=== PATIENT | male | born 1960 | race Caucasian/White ===

== ENCOUNTER → 2017-02-04 | Outpatient (CLI) | payer OTHER ==
--- NOTE | 2017-02-04 15:39 | REP ---
Right lower extremity Duplex Doppler venous ultrasound: Real time compression and duplex Doppler interrogation of the right lower extremity deep venous system is performed. The right common femoral, superficial femoral and popliteal veins are fully compressible with transducer pressure and demonstrate normal spontaneous and phasic flow, without evidence of deep venous thrombosis. However there is diffuse thrombus within the right greater saphenous vein which extends to the saphenofemoral junction. Impression: No evidence of deep venous thrombosis of the right lower extremity femoral popliteal venous system. However there is diffuse thrombus within the right greater saphenous vein which extends to the saphenofemoral junction. Signed by Geraldo Frost MD 02/04/2017 03:31 P
== END ==
LOC: M LAB 14:37 → M RAD 14:37
PROVIDERS: ATTEND Nurse Practitioner Adult Health
DX: I82.402 Acute embolism and thrombosis of unspecified deep veins of left lower extremity (principal)

== ENCOUNTER → 2018-01-02 | Outpatient (CLI) | payer OTHER ==
[2018-01-02 16:56] LABS: BASO # 0.1 10^3/uL (0.0-0.2); BASO % 0.9 % (0.0-1.0); EOS # 0.2 10^3/uL (0.0-0.50); EOS % 2.8 % (0.0-3.0); HEMOGLOBIN 13.9 g/dl (13.5-17.5); IMMATURE GRANULOCYTE % 0.3 % (0-3.0); LYMPH # 2.2 10^3/uL (1.5-4.5); LYMPH % 31.7 % (24.0-44.0); MEAN CORPUSCULAR HGB CONC 31.6 g/dl (32.0-36.5); MEAN CORPUSCULAR VOLUME 94.8 fl (80.0-96.0); MONO # 0.5 10^3/uL (0.0-0.8); MONO % 7.5 % (0.0-5.0); NEUTROPHILS # 3.9 10^3/uL (1.8-7.7); NEUTROPHILS % 56.8 % (36.0-66.0); PLATELET COUNT, AUTOMATED 151 10^3/uL (150-450); RED BLOOD COUNT 4.64 10^6/uL (4.30-6.10); RED CELL DISTRIBUTION WIDTH 13.2 % (11.5-14.5); WHITE BLOOD COUNT 6.8 10^3/uL (4.0-10.0)
[2018-01-02 17:23] LABS: ALBUMIN 3.8 GM/DL (3.2-5.2); ALBUMIN/GLOBULIN RATIO 0.86 (1.00-1.93); ALKALINE PHOSPHATASE 74 U/L (45-117); ALT/SGPT 35 U/L (12-78); ANION GAP 11 MEQ/L (8-16); AST/SGOT 28 U/L (7-37); BILIRUBIN,TOTAL 0.4 MG/DL (0.2-1.0); BLOOD UREA NITROGEN 20 MG/DL (7-18); CALCIUM LEVEL 8.9 MG/DL (8.5-10.1); CARBON DIOXIDE LEVEL 25 MEQ/L (21-32); CHLORIDE LEVEL 107 MEQ/L (98-107); CREATININE FOR GFR 1.07 MG/DL (0.70-1.30); GLOMERULAR FILTRATION RATE > 60.0 (>56); GLUCOSE, FASTING 94 MG/DL (70-100); POTASSIUM SERUM 4.6 MEQ/L (3.5-5.1); SODIUM LEVEL 143 MEQ/L (136-145); TOTAL PROTEIN 8.2 GM/DL (6.4-8.2)
== END ==
LOC: M WUC 10:49
DX: M54.5 Low back pain (principal)
CPT/HCPCS: 80053

== ENCOUNTER → 2018-01-02 | Outpatient (REF) | payer OTHER | LOC: M LAB REF 13:06 | DX: M54.5 Low back pain (principal) ==

== ENCOUNTER 2019-06-18 17:16 | Observation (INO) | payer OTHER ==
[~2019-06-18] VITALS: Ht 177.8 cm; Wt 136.4 kg
[2019-06-18] MEDS ORDERED: LEVO137T2 PO (18:07)
[2019-06-18] MEDS ORDERED: XARE20TA PO (18:07)
[2019-06-18 18:24] LABS: BASO % 0.2 % (0.0-1.0); EOS # 0.1 10^3/uL (0.0-0.5); EOS % 0.5 % (0.0-3.0); HEMATOCRIT 43.5 % (42.0-52.0); HEMOGLOBIN 13.9 g/dl (13.5-17.5); LYMPH # 0.5 10^3/uL (1.5-5.0); MEAN CORPUSCULAR HEMOGLOBIN 29.9 pg (27.0-33.0); MEAN CORPUSCULAR VOLUME 93.5 fl (80.0-96.0); MONO # 0.3 10^3/uL (0.0-0.8); NEUTROPHILS # 8.4 10^3/uL (1.5-8.5); NEUTROPHILS % 91.1 % (36.0-66.0); PLATELET COUNT, AUTOMATED 150 10^3/uL (150-450); RED BLOOD COUNT 4.65 10^6/uL (4.30-6.10); WHITE BLOOD COUNT 9.2 10^3/uL (4.0-10.0)
[2019-06-18 18:28] LABS: INR 1.27; PROTHROMBIN TIME 15.6 SECONDS (11.8-14.0)
[2019-06-18 18:29] LABS: PARTIAL THROMBOPLASTIN TIME 25.3 SECONDS (25.0-38.4)
[2019-06-18 18:42] LABS: ALBUMIN 3.5 GM/DL (3.2-5.2); ALT/SGPT 31 U/L (12-78); BILIRUBIN,DIRECT < 0.1 MG/DL (0.0-0.2); BILIRUBIN,TOTAL 0.5 MG/DL (0.2-1.0); BLOOD UREA NITROGEN 18 MG/DL (7-18); CALCIUM LEVEL 8.7 MG/DL (8.5-10.1); CARBON DIOXIDE LEVEL 28 MEQ/L (21-32); CHLORIDE LEVEL 106 MEQ/L (98-107); CK-MB VALUE MASS 1.4 NG/ML (<3.6); CPK CREATINE PHOSPHOKINASE 123 U/L (39-308); CREATININE FOR GFR 1.24 MG/DL (0.70-1.30); FREE T4 0.81 NG/DL (0.76-1.46); GLOMERULAR FILTRATION RATE > 60.0 (>56); GLUCOSE, FASTING 106 MG/DL (70-100); LIPASE 95 U/L (73-393); MB/CK RELATIVE INDEX 1.14 (< OR =4); SODIUM LEVEL 139 MEQ/L (136-145); TOTAL PROTEIN 8.2 GM/DL (6.4-8.2); TROPONIN I < 0.02 NG/ML (< 0.10)
[2019-06-18] MEDS ORDERED: ISOVUE-370 76% 100ML VIAL (Q9967) As Ordered ONE (18:58)
[2019-06-18] MEDS ORDERED: NS 1,000 ML IV ONE (19:00)
[2019-06-18] MEDS ORDERED: ACETAMINOPHEN TAB 650MG DOSE (2X325MG) PO ONE (19:00)
--- NOTE | 2019-06-18 20:00 | REPVR ---
PROCEDURE INFORMATION: Exam: CT Abdomen And Pelvis With Contrast Exam date and time: 06/18/2019 7:12 PM Age: 59 years old Clinical indication: Abdominal pain; Epigastric; Additional info: Epigastric pain TECHNIQUE: Imaging protocol: Computed tomography of the abdomen and pelvis with intravenous contrast. Radiation optimization: All CT scans at this facility use at least one of these dose optimization techniques: automated exposure control; mA and/or kV adjustment per patient size (includes targeted exams where dose is matched to clinical indication); or iterative reconstruction. Contrast material: ISOVUE 370; Contrast volume: 100 ml; Contrast route: IV; COMPARISON: CT ABD PELVIS W/O CONTRAST 11/28/2014 9:11 PM FINDINGS: Liver: There is a diffuse decrease in hepatic parenchymal density, consistent with fatty infiltration. Gallbladder and bile ducts: Normal. No calcified stones. No ductal dilation. Pancreas: Normal. No ductal dilation. Spleen: Normal. No splenomegaly. Adrenals: Normal. No mass. Kidneys and ureters: Simple cyst upper pole right kidney measures 5.7 cm. Stomach and bowel: Multiple nodular densities demonstrated in the posterior aspect of the gastric fundus. Endoscopic or upper GI correlation recommended to exclude polypoid masses. Dilated small bowel loops demonstrated in the abdomen involving the jejunum and normalizing at the ileum without a clear transition point. Finding is consistent with a small bowel obstruction or ileus depending upon clinical evaluation. Appendix: No evidence of appendicitis. Intraperitoneal space: Unremarkable. No free air. No significant fluid collection. Vasculature: Unremarkable. No abdominal aortic aneurysm. Lymph nodes: Unremarkable. No enlarged lymph nodes. Bladder: Unremarkable as visualized. Reproductive: Unremarkable as visualized. Bones/joints: Moderate to severe central spinal stenosis L3-L4 and L4-L5. Soft tissues: Unremarkable. IMPRESSION: 1. There is a diffuse decrease in hepatic parenchymal density, consistent with fatty infiltration. 2. Multiple nodular densities demonstrated in the posterior aspect of the gastric fundus. Endoscopic or upper GI correlation recommended to exclude polypoid masses. 3. Dilated small bowel loops demonstrated in the abdomen involving the jejunum and normalizing at the ileum without a clear transition point. Finding is consistent with a small bowel obstruction or ileus depending upon clinical evaluation. Electronically signed by: John Fam On 06/18/2019 20:00:02 PM
--- NOTE | 2019-06-18 20:05 | REPVR ---
PROCEDURE INFORMATION: Exam: CT Angiography Chest With Contrast Exam date and time: 06/18/2019 7:12 PM Age: 59 years old Clinical indication: Chest pain; Additional info: Chest pain HX dvt TECHNIQUE: Imaging protocol: Computed tomographic angiography of the chest with intravenous contrast. 3D rendering: MIP and/or 3D reconstructed images were created by the technologist. Radiation optimization: All CT scans at this facility use at least one of these dose optimization techniques: automated exposure control; mA and/or kV adjustment per patient size (includes targeted exams where dose is matched to clinical indication); or iterative reconstruction. Contrast material: ISOVUE 370; Contrast volume: 100 ml; Contrast route: IV; COMPARISON: CT ANGIO CHEST 05/18/2013 2:32 PM FINDINGS: Pulmonary arteries: There are no pulmonary emboli. Aorta: There is fusiform dilatation of the ascending thoracic aorta which measures 4 cm. maximally. There is no dissection or saccular component. Lungs: Bibasilar atelectasis and/or parenchymal scarring. Pleural space: Unremarkable. No pneumothorax. No pleural effusion. Heart: Unremarkable. No cardiomegaly. No pericardial effusion. Lymph nodes: Unremarkable. No enlarged lymph nodes. Bones/joints: The spine demonstrates moderate degenerative changes. Soft tissues: Unremarkable. IMPRESSION: 1. There is fusiform dilatation of the ascending thoracic aorta which measures 4 cm. maximally. There is no dissection or saccular component. 2. There are no pulmonary emboli. Electronically signed by: John Fam On 06/18/2019 20:04:49 PM
[2019-06-18 20:06] LABS: INFLUENZA A AMPLIFICATION NEGATIVE (NEGATIVE); INFLUENZA B AMPLIFICATION NEGATIVE (NEGATIVE)
[2019-06-18] MEDS ORDERED: MORPHINE 4 MG/ML 1ML VIAL/SYRINGE (J2270) IV ONE (20:30)
[2019-06-18] MEDS ORDERED: ONDANSETRON 4MG/2ML VIAL (J2405) IV ONE (20:45)
[2019-06-18] MEDS ORDERED: ONDANSETRON 4MG/2ML VIAL (J2405) As Ordered ONE (20:46)
--- NOTE | 2019-06-19 00:59 | HPEPDOC ---
[facility] Medical History & Physical Date of Admission Jun 19, 2019 Date of Service: Jun 19, 2019 Attending Physician: ESTRELLITA PIZARRO MD History and Physical CHIEF COMPLAINT: Abdominal pain and nausea HISTORY OF PRESENT ILLNESS: 59-year-old male with past medical history of DVT (on Xarelto) and hypothyroidism presents from home with abdominal pain and nausea which started earlier today. Patient was feeling well up until his symptoms started in the morning, abdominal pain was epigastric, sharp, no nradiating, intermittent, resolved after receiving morphine in the emergency room. Patient found to have possible small bowel obstruction versus ileus on CAT scan, general surgery was consulted by emergency department, who recommended the patient even go home if tolerating oral intake, which the patient could. But, patient feels too weak to go home at this time. Patient seen in bed, comfortable, denies any nausea or abdominal pain at this time, no complaints. He denies any shortness of breath, chest pain, diarrhea or constipation. 10 point review of system is negative except for above PAST MEDICAL HISTORY: 1. DVT. 2. Hypothyroidism. PAST SURGICAL HISTORY: 1. None. SOCIAL HISTORY: Never smoker. Denies alcohol use. Denies drug use FAMILY HISTORY: Mother had heart disease ALLERGIES: Please see below. HOME MEDICATIONS: Please see below. PHYSICAL EXAMINATION: VITAL SIGNS: Please see below. GENERAL: No distress HEENT: Normocephalic, atraumatic, moist mucous membranes NECK: Supple CARDIOVASCULAR EXAMINATION: S1, S2, no murmurs RESPIRATORY EXAMINATION: Clear to auscultation, no wheezing ABDOMINAL EXAMINATION: Soft, nontender, nondistended, positive bowel sounds EXTREMITIES: Range of motion intact SKIN: No rash NEUROLOGICAL EXAMINATION: Alert and oriented 3, no focal deficits PSYCHIATRIC EXAMINATION: Calm and cooperative LABORATORY DATA: See below. IMAGING: CT abdomen and pelvis showing dilated loops of small bowel without a transition point, concerning for possible small bowel torsion versus ileus MICROBIOLOGY: Please see below. ASSESSMENT: 59-year-old male with past medical history of DVT and hypothyroidism being admitted for small bowel obstruction versus ileus. PLAN: 1. Small bowel obstruction versus ileus. No history of abdominal surgeries, small bowel obstruction seems less likely, especially without an obvious transition point. Patient symptoms concerning for possible viral infection, which may have caused an ileus. Patient is tolerating oral intake, continue gentle IV hydration. 2. Hypothyroidism. Continue levothyroxine 3. DVT. Continue Xarelto DVT prophylaxis: Xarelto GI prophylaxis: Not needed Vital Signs Vital Signs Date Time Temp Pulse Resp B/P (MAP) Pulse Ox O2 Delivery O2 Flow Rate FiO2 06/19/19 00:00 65 116/62 (80) 95 Room Air 06/18/19 22:00 18 06/18/19 20:28 99.1 Laboratory Data Labs 24H Laboratory Tests 2 06/18/19 17:53: Immature Granulocyte % (Auto) 0.2, Neutrophils (%) (Auto) 91.1H, Lymphocytes (%) (Auto) 5.0L, Monocytes (%) (Auto) 3.0, Eosinophils (%) (Auto) 0.5, Basophils (%) (Auto) 0.2, Neutrophils # (Auto) 8.4, Lymphocytes # (Auto) 0.5L, Monocytes # (Auto) 0.3, Eosinophils # (Auto) 0.1, Basophils # (Auto) 0.0, Nucleated Red Blood Cells % (auto) 0.0, Prothrombin Time 15.6H, Prothromb Time International Ratio 1.27, Activated Partial Thromboplast Time 25.3, Anion Gap 5L, Glomerular Filtration Rate > 60.0, Calcium Level 8.7, Total Bilirubin 0.5, Direct Bilirubin < 0.1, Aspartate Amino Transf (AST/SGOT) 31, Alanine Aminotransferase (ALT/SGPT) 31, Alkaline Phosphatase 76, Total Creatine Kinase 123, Creatine Kinase MB 1.4, Creatine Kinase MB Relative Index 1.14, Troponin I < 0.02, Total Protein 8.2, Albumin 3.5, Albumin/Globulin Ratio 0.74L, Lipase 95, Thyroid Stimulating Horm one (TSH) 1.300, Free Thyroxine 0.81 06/18/19 19:15: Urine Color YELLOW, Urine Appearance CLEAR, Urine pH 5.0, Urine Specific [place] 1.045, Urine Protein NEGATIVE, Urine Glucose (UA) NEGATIVE, Urine Ketones NEGATIVE, Urine Blood NEGATIVE, Urine Nitrite NEGATIVE, Urine Bilirubin NEGATIVE, Urine Urobilinogen 0.2, Urine Leukocyte Esterase NEGATIVE, Urine WBC (Auto) 1, Urine RBC (Auto) 2, Urine Hyaline Casts (Auto) 0, Urine Bacteria (Auto) NEGATIVE, Urine Squamous Epithelial Cells 0, Urine Mucus (Auto) SMALL, Urine Sperm (Auto) 06/18/19 19:28: Influenza Type A (RT-PCR) NEGATIVE, Influenza Type B (RT-PCR) NEGATIVE CBC/BMP Laboratory Tests 06/18/19 17:53 Microbiology Microbiology 06/18/19 Respiratory Virus Panel (PCR) ([facility]), Received Pending Home Medications Scheduled Levothyroxine Sodium (Levothyroxine Sodium) 137 Mcg Tablet, 137 MCG PO DAILY BEFORE BREAKFAST Rivaroxaban (Xarelto) 20 Mg Tablet, 20 MG PO DAILY Allergies Coded Allergies: No Known Allergies (Verified , 03/31/08) A-FIB/CHADSVASC A-FIB History Current/History of A-Fib/PAF?: No ESTRELLITA PIZARRO MD Jun 19, 2019 00:59
[2019-06-19 01:45] VITALS: BP 126/54
[2019-06-19] MEDS: NS 1,000 ML IV SCH ×3 (01:50→18:49)
[2019-06-19] MEDS ORDERED: ONDANSETRON 4MG/2ML VIAL (J2405) IV PRN (02:45)
[2019-06-19] MEDS: LEVOTHYROXINE 137MCG TABLET (0.137MG) PO SCH (05:31)
[2019-06-19 06:00] VITALS: BP 123/56
[2019-06-19 06:37] LABS: HEMATOCRIT 43.7 % (42.0-52.0); HEMOGLOBIN 13.8 g/dl (13.5-17.5); MEAN CORPUSCULAR HEMOGLOBIN 30.2 pg (27.0-33.0); MEAN CORPUSCULAR HGB CONC 31.6 g/dl (32.0-36.5); MEAN CORPUSCULAR VOLUME 95.6 fl (80.0-96.0); RED BLOOD COUNT 4.57 10^6/uL (4.30-6.10); WHITE BLOOD COUNT 6.8 10^3/uL (4.0-10.0)
[2019-06-19 06:41] LABS: PLATELET COUNT, AUTOMATED 112 10^3/uL (150-450)
[2019-06-19] MEDS: RIVAROXABAN 20 MG TAB (XARELTO) PO SCH (08:38)
[2019-06-19] MEDS: ACETAMINOPHEN TAB 650MG DOSE (2X325MG) PO PRN ×2 (09:26→15:47)
[2019-06-19] MEDS ORDERED: OMEPRAZOLE 20 MG CAP PO ONE (09:45)
[2019-06-19 10:00] VITALS: BP 112/62
[2019-06-19] MEDS ORDERED: metroNIDAZOLE 250 MG in IV 1 EA IV SCH (10:15)
[2019-06-19] MEDS ORDERED: CIPROFLOXACIN 200 MG in IV 1 EA IV SCH (10:15)
[2019-06-19] MEDS ORDERED: PANTOPRAZOLE 40MG INJ (PROTONIX) (C9113) IV ONE (10:30)
--- NOTE | 2019-06-19 11:04 | IPNPDOC ---
Text Note Date of Service The patient was seen on 06/19/19. NOTE Subjective: Patient continues to complain of fever and epigastric pain. He d idn't have any bowel movements and stated that he feels lousy. Patient denied palpitations, shortness of breath, vomiting, headache, dysuria Objective: Obese male HEENT: Normocephalic, atraumatic, moist mucous membranes NECK: Supple CARDIOVASCULAR EXAMINATION: S1, S2, no murmurs RESPIRATORY EXAMINATION: Clear to auscultation, no wheezing ABDOMINAL EXAMINATION: Soft, positive bowel sounds, tenderness over epigastric area EXTREMITIES: Range of motion intact SKIN: No rash NEUROLOGICAL EXAMINATION: Alert and oriented 3, no focal deficits PSYCHIATRIC EXAMINATION: Calm and cooperative Patient is 59 years old male with past mental history of DVT and hypothyroidism presented hospital with epigastric abdominal pain and weakness. Patient was found to have small bowel obstruction versus ileus on the CAT scan Epigastric abdominal pain Most likely secondary to gastritis or PUD PPI IV We will check stool for Helicobacter pylori Pain management Patient will need endoscopy in the outpatient settings. Small bowel obstruction versus ileus. No history of abdominal surgeries - Appreciate/agree with surgical consult Patient febrile there is possibility for gastroenteritis Cipro IV, metronidazole IV in order to prevent bacterial translocation Continue IV fluid, nothing by mouth for now Hypothyroidism. Continue levothyroxine DVT. Continue Xarelto VS,Fishbone, I+O VS, Fishbone, I+O Laboratory Tests 06/18/19 17:53 06/19/19 06:15 Vital Signs Date Time Temp Pulse Resp B/P (MAP) Pulse Ox O2 Delivery O2 Flow Rate FiO2 06/19/19 06:00 100.9 66 19 123/56 (78) 92 Room Air I&O- Last 24 Hours up to 6 AM 06/19/19 06:00 Intake Total 1364 ml Output Total 0 ml Balance 1364 ml DAGOBERTO MEEHAN DO Jun 19, 2019 11:04
[2019-06-19] MEDS: CIPROFLOXACIN 400 MG in IV 1 EA IV SCH ×2 (11:18→23:09)
[2019-06-19 11:58] LABS: ALBUMIN 3.2 GM/DL (3.2-5.2); ALT/SGPT 25 U/L (12-78); BILIRUBIN,TOTAL 0.4 MG/DL (0.2-1.0); BLOOD UREA NITROGEN 15 MG/DL (7-18); CALCIUM LEVEL 8.1 MG/DL (8.5-10.1); CARBON DIOXIDE LEVEL 25 MEQ/L (21-32); CHLORIDE LEVEL 108 MEQ/L (98-107); GLOMERULAR FILTRATION RATE > 60.0 (>56); GLUCOSE, FASTING 116 MG/DL (70-100); POTASSIUM SERUM 3.9 MEQ/L (3.5-5.1); SODIUM LEVEL 139 MEQ/L (136-145); TOTAL PROTEIN 6.8 GM/DL (6.4-8.2)
[2019-06-19] MEDS: metroNIDAZOLE 500 MG in IV 1 EA IV SCH ×2 (12:52→19:43)
[2019-06-19] MEDS ORDERED: MORPHINE 2 MG/ML 1ML VIAL (J2270) IV PRN (16:00)
[2019-06-19] MEDS: PANTOPRAZOLE 40MG INJ (PROTONIX) (C9113) IV SCH (19:44)
[2019-06-19 19:50] VITALS: BP 138/73
--- NOTE | 2019-06-19 19:59 | REPVR ---
PROCEDURE INFORMATION: Exam: US Abdomen Limited, Right Upper Quadrant Exam date and time: 06/19/2019 6:52 PM Age: 59 years old Clinical indication: Abdominal pain; Acute; Additional info: Ruq pain TECHNIQUE: Imaging protocol: Real-time ultrasound of the abdomen with image documentation. Examination was focused on the right upper quadrant. COMPARISON: GALLBLADDER US 08/06/2013 7:03 AM FINDINGS: Liver: The liver is diffusely echogenic relative to the right kidney, findings consistent with steatosis. Gallbladder: Normal. No gallstones. There is no gallbladder wall thickening. Common bile duct: The common bile duct measures 4.4 mm. No mass or choledocholithiasis. Pancreas: Pancreas obscured by overlying bowel gas. Right kidney: Right kidney measures 12.8 x 5.6 x 6.2 cm. Upper pole cyst in the right kidney measures 4.7 x 4.8 x 4.4 cm. No complex features demonstrated. IMPRESSION: 1. Hepatic steatosis. 2. Upper pole cyst right kidney without complex features. Electronically signed by: John Fam On 06/19/2019 19:59:22 PM
[2019-06-20] MEDS: NS 1,000 ML IV SCH (02:04)
[2019-06-20] MEDS: LEVOTHYROXINE 137MCG TABLET (0.137MG) PO SCH (05:09)
[2019-06-20] MEDS: metroNIDAZOLE 500 MG in IV 1 EA IV SCH (05:09)
[2019-06-20 05:41] VITALS: BP 139/89
[2019-06-20 07:37] LABS: BASO % 0.3 % (0.0-1.0); EOS % 0.5 % (0.0-3.0); HEMATOCRIT 39.1 % (42.0-52.0); HEMOGLOBIN 12.6 g/dl (13.5-17.5); LYMPH # 1.2 10^3/uL (1.5-5.0); LYMPH % 19.8 % (24.0-44.0); MEAN CORPUSCULAR HEMOGLOBIN 30.1 pg (27.0-33.0); MEAN CORPUSCULAR HGB CONC 32.2 g/dl (32.0-36.5); MEAN CORPUSCULAR VOLUME 93.5 fl (80.0-96.0); MONO # 0.6 10^3/uL (0.0-0.8); MONO % 9.7 % (0.0-5.0); NEUTROPHILS # 4.1 10^3/uL (1.5-8.5); NEUTROPHILS % 69.4 % (36.0-66.0); PLATELET COUNT, AUTOMATED 126 10^3/uL (150-450); RED BLOOD COUNT 4.18 10^6/uL (4.30-6.10); WHITE BLOOD COUNT 5.9 10^3/uL (4.0-10.0)
[2019-06-20 08:17] LABS: BLOOD UREA NITROGEN 15 MG/DL (7-18); CALCIUM LEVEL 8.2 MG/DL (8.5-10.1); CARBON DIOXIDE LEVEL 24 MEQ/L (21-32); CHLORIDE LEVEL 107 MEQ/L (98-107); CREATININE FOR GFR 1.13 MG/DL (0.70-1.30); GLOMERULAR FILTRATION RATE > 60.0 (>56); GLUCOSE, FASTING 105 MG/DL (70-100); MAGNESIUM LEVEL 1.8 MG/DL (1.8-2.4); POTASSIUM SERUM 3.9 MEQ/L (3.5-5.1); SODIUM LEVEL 139 MEQ/L (136-145)
[2019-06-20] MEDS ORDERED: OMEPRAZOLE 20 MG CAP PO SCH (09:00)
[2019-06-20] MEDS: RIVAROXABAN 20 MG TAB (XARELTO) PO SCH (09:27)
[2019-06-20] MEDS: PANTOPRAZOLE 40MG INJ (PROTONIX) (C9113) IV SCH (09:28)
[2019-06-20] MEDS ORDERED: ACET1TAB55 PO (11:33)
[2019-06-20] MEDS ORDERED: OMEP40CA97 PO (11:33)
--- NOTE | 2019-06-20 11:51 | CR ---
DATE OF CONSULTATION: 06/20/2019 CHIEF COMPLAINT: Abdominal pain. HISTORY OF PRESENT ILLNESS: The patient is a 59-year-old male who presented to the hospital . Yesterday, June 19, with complaints of epigastric pain that started in the morning. He was brought into the emergency room. CT showed possible small-bowel obstruction versus ileus; however, his epigastric pain resolved as soon as he got some morphine. Recommendation was to go home, but the patient felt like he was too weak to go home. He was admitted onto the hospital service. During the day yesterday he had continued pains with meals. He was then placed nothing by mouth, and I was asked to the evaluate him. This morning he says he is not having any pain currently; he just feels really weak. He has not had a bowel movement in 2 days. No nausea or vomiting. No fever since admission. He is urinating well. He is ambulating well. No other complaints. He has never had any symptoms like this in the past. No prior surgery to his abdomen. No trauma to the abdomen. No recent illnesses that he is aware of. He just feels like he has the flu because of the way his symptoms are; however, he was diagnosed negative for the flu in the emergency room. No recent trauma to the abdomen. No recent changes in medications or diet. He denies alcohol or tobacco usage. Minimal spicy food, acidic food, and caffeine intake, and no [id number] medications. No history of acid reflux or heartburn in the past and no symptoms of that currently. 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 No other changes in his history. PAST MEDICAL HISTORY: 1. Deep vein thrombosis (DVT). 2. Hypothyroidism. PAST SURGICAL HISTORY: None. SOCIAL HISTORY: He denies drug, alcohol, tobacco abuse. FAMILY HISTORY: Noncontributory. ALLERGIES TO MEDICATIONS: Please see medication reconciliation. REVIEW OF SYSTEMS: Pertinent positives and negatives stated in the history of present illness (HPI). PHYSICAL EXAMINATION: GENERAL: Alert and oriented times three. No acute stress. VITAL SIGNS: Temperature 99, pulse 58, respirations 16, blood pressure 139/89, pulse oximetry 91% on room air. HEENT: Pupils equally round and reactive to light and accommodation. HEART: S1 S2, regular rate and rhythm. LUNGS: Clear to auscultation bilaterally. ABDOMEN: Soft, nontender, and nondistended. No guarding or rigidity. EXTREMITIES: No clubbing, cyanosis, or edema. LABORATORY DATA: White count 5.9, hemoglobin 12.6, platelets 126, creatinine 1.13. IMAGING STUDIES: CT abdomen and pelvis showed diffuse decrease in hepatic parenchymal density, consistent with fatty infiltration, multiple nodular densities in the posterior aspect of the gastric fundus. Endoscopic or upper gastrointestinal (GI) correlation recommended to exclude polypoid masses. Dilated small-bowel loops demonstrated in the abdomen involving the jejunum and normalizing at the ileum without a clear transition point. Findings consistent with small-bowel obstruction or ileus, depending upon clinical evaluation. ASSESSMENT AND PLAN: The patient is a 59-year-old male with nonspecific epigastric pain. Currently has resolved. This was likely secondary to ileus from either gastroenteritis or some sort of viral gastritis. Recommendation at this time is to resume diet. If he tolerates a diet, then he can be discharged home. Would also recommend upper endoscopy as an outpatient to rule out any abnormalities based off of the CT findings. That is not something that needs to be done during this admission. I do not feel that that has anything to do with his current symptoms; however, if he does not improve over the next 24-48 hours, then we can consider upper endoscopy during this stay. Thank you for consult.
--- NOTE | 2019-06-20 14:39 | DS.PDOC ---
Discharge Summary General Date of Admission Jun 18, 2019 at 17:17 Date of Discharge 06/20/19 Discharge Summary PROCEDURES PERFORMED DURING STAY: None ADMITTING DIAGNOSES: Small bowel obstruction versus ileus Hypothyroidism. DVT DISCHARGE DIAGNOSES: Gastroenteritis Small bowel obstruction versus ileus Hypothyroidism. DVT COMPLICATIONS/CHIEF COMPLAINT: DVT. HISTORY OF PRESENT ILLNESS:The patient is a 59-year-old male who presented to the hospital . Yesterday, June 19, with complaints of epigastric pain that started in the morning. He was brought into the emergency room. CT showed possible small-bowel obstruction versus ileus; however, his epigastric pain resolved as soon as he got some morphine. Recommendation was to go home, but the patient felt like he was too weak to go home. He was admitted onto the hospital service. During the day yesterday he had continued pains with meals. He was then placed nothing by mouth. This morning he says he is not having any pain currently; he just feels really weak. He has not had a bowel movement in 2 days. No nausea or vomiting. No fever since admission. He is urinating well. He is ambulating well. No other complaints. He has never had any symptoms like this in the past. No prior surgery to his abdomen. No trauma to the abdomen. No recent illnesses that he is aware of. He just feels like he has the flu because of the way his symptoms are; however, he was diagnosed negative for the flu in the emergency room. No recent trauma to the abdomen. No recent changes in medications or diet. He denies alcohol or tobacco usage. Minimal spicy food, acidic food, and caffeine intake, and no [id number] medications. No history of acid reflux or heartburn in the past and no symptoms of that currently. 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 No other changes in his history. HOSPITAL COURSE: During hospital stay patient received treatment with PPI and pain medications. His abdominal pain resolved. CT scan of abdomen was done. See results below. Most likely patient developed upper epigastric pain secondary to gastroenteritis due to viral infection. Recommended upper endoscopy in the outpatient settings DISCHARGE MEDICATIONS: Please see below. ALLERGIES: Please see below. PHYSICAL EXAMINATION ON DISCHARGE: Objective: Obese male HEENT: Normocephalic, atraumatic, moist mucous membranes NECK: Supple CARDIOVASCULAR EXAMINATION: S1, S2, no murmurs RESPIRATORY EXAMINATION: Clear to auscultation, no wheezing ABDOMINAL EXAMINATION: Soft, positive bowel sounds EXTREMITIES: Range of motion intact SKIN: No rash NEUROLOGICAL EXAMINATION: Alert and oriented 3, no focal deficits PSYCHIATRIC EXAMINATION: Calm and cooperative LABORATORY DATA: Please see below. IMAGING: Exam: CT Abdomen And Pelvis With Contrast Exam date and time: 06/18/2019 7:12 PM Age: 59 years old Clinical indication: Abdominal pain; Epigastric; Additional info: Epigastric pain TECHNIQUE: Imaging protocol: Computed tomography of the abdomen and pelvis with intravenous contrast. Radiation optimization: All CT scans at this facility use at least one of these dose optimization techniques: automated exposure control; mA and/or kV adjustment per patient size (includes targeted exams where dose is matched to clinical indication); or iterative reconstruction. Contrast material: ISOVUE 370; Contrast volume: 100 ml; Contrast route: IV; COMPARISON: CT ABD PELVIS W/O CONTRAST 11/28/2014 9:11 PM FINDINGS: Liver: There is a diffuse decrease in hepatic parenchymal density, consistent with fatty infiltration. Gallbladder and bile ducts: Normal. No calcified stones. No ductal dilation. Pancreas: Normal. No ductal dilation. Spleen: Normal. No splenomegaly. Adrenals: Normal. No mass. Kidneys and ureters: Simple cyst upper pole right kidney measures 5.7 cm. Stomach and bowel: Multiple nodular densities demonstrated in the posterior aspect of the gastric fundus. Endoscopic or upper GI correlation recommended to exclude polypoid masses. Dilated small bowel loops demonstrated in the abdomen involving the jejunum and normalizing at the ileum without a clear transition point. Finding is consistent with a small bowel obstruction or ileus depending upon clinical evaluation. Appendix: No evidence of appendicitis. Intraperitoneal space: Unremarkable. No free air. No significant fluid collection. Vasculature: Unremarkable. No abdominal aortic aneurysm. Lymph nodes: Unremarkable. No enlarged lymph nodes. Bladder: Unremarkable as visualized. Reproductive: Unremarkable as visualized. Bones/joints: Moderate to severe central spinal stenosis L3-L4 and L4-L5. Soft tissues: Unremarkable. IMPRESSION: 1. There is a diffuse decrease in hepatic parenchymal density, consistent with fatty infiltration. 2. Multiple nodular densities demonstrated in the posterior aspect of the gastric fundus. Endoscopic or upper GI correlation recommended to exclude polypoid masses. 3. Dilated small bowel loops demonstrated in the abdomen involving the jejunum and normalizing at the ileum without a clear transition point. Finding is consistent with a small bowel obstruction or ileus depending upon clinical evaluation. Electronically signed by: John Fam On 06/18/2019 20:00:02 PM PROGNOSIS: Favorable ACTIVITY: As tolerated DIET: Regular, without alcohol DISCHARGE PLAN: Home DISPOSITION: 01 Home, Self-Care. 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 Vital Signs/I&Os Vital Signs Date Time Temp Pulse Resp B/P (MAP) Pulse Ox O2 Delivery O2 Flow Rate FiO2 06/20/19 05:41 99.0 58 16 139/89 (106) 91 Room Air I&O- Last 24 Hours up to 6 AM 06/20/19 06:00 Intake Total 420 ml Output Total 1500 ml Balance -1080 ml Laboratory Data Labs 24H Laboratory Tests 2 06/20/19 07:21: Immature Granulocyte % (Auto) 0.3, Neutrophils (%) (Auto) 69.4H, Lymphocytes (%) (Auto) 19.8L, Monocytes (%) (Auto) 9.7H, Eosinophils (%) (Auto) 0.5, Basophils (%) (Auto) 0.3, Neutrophils # (Auto) 4.1, Lymphocytes # (Auto) 1.2L, Monocytes # (Auto) 0.6, Eosinophils # (Auto) 0.0, Basophils # (Auto) 0.0, Nucleated Red Blood Cells % (auto) 0.0, Anion Gap 8, Glomerular Filtration Rate > 60.0, Calcium Level 8.2L, Magnesium Level 1.8 CBC/BMP Laboratory Tests 06/20/19 07:21 Microbiology Microbiology 06/18/19 Respiratory Virus Panel (PCR) ([facility]) - Final, Complete Discharge Medications Scheduled Levothyroxine Sodium (Levothyroxine Sodium) 137 Mcg Tablet, 137 MCG PO DAILY, (Reported) BEFORE BREAKFAST Omeprazole (Omeprazole) 40 Mg Capsule.dr, 40 MG PO DAILY Rivaroxaban (Xarelto) 20 Mg Tablet, 20 MG PO DAILY, (Reported) Scheduled PRN Acetaminophen (Acetaminophen) 325 Mg Tablet, 650 MG PO Q6HP PRN for PAIN / FEVER Allergies Coded Allergies: No Known Allergies (Verified , 03/31/08) DAGOBERTO MEEHAN DO Jun 20, 2019 14:39
== END 2019-06-20 13:20 | disposition home or self-care (01) ==
LOC: M ED 17:16 → EDBD 17:16 → M ED INP 17:17 → M ED 06-19 01:16 → M MS5PR 06-19 01:38
PROVIDERS: ADMIT Internal Medicine; ATTEND Internal Medicine
DX: K52.9 Noninfective gastroenteritis and colitis, unspecified (principal); K56.699 Other intestinal obstruction unspecified as to partial versus complete obstruction; E03.9 Hypothyroidism, unspecified; Z86.718 Personal history of other venous thrombosis and embolism; Z79.01 Long term (current) use of anticoagulants; Z79.899 Other long term (current) drug therapy
CPT/HCPCS: 36415; 71275; 74177; 76705; 80048; 80053; 80076; 81001; 82550; 82553; 83690; 83735; 84439; 84443; 84484; 85025; 85027; 85610; 85730; 87486; 87502; 87581; 87633; 87798; 93041; 94760; 96361; 96365; 96366; 96375; 96376; 97116; 97161; 99285; C9113; J0744; J2270; J2405; Q9967

== ENCOUNTER 2019-08-03 21:38 | Emergency (ER) | payer OTHER ==
[~2019-08-03] VITALS: Ht 177.8 cm; Wt 139.8 kg
[2019-08-03 21:38] VITALS: BP 124/66
[~2019-08-03 21:38] MED LIST: ACET1TAB55 PO; LEVO137T2 PO; OMEP40CA97 PO; XARE20TA PO
--- NOTE | 2019-08-03 23:57 | REPVR ---
PROCEDURE INFORMATION: Exam: CT Lumbar Spine Without Contrast Exam date and time: 08/03/2019 11:04 PM Age: 59 years old Clinical indication: Low back pain TECHNIQUE: Imaging protocol: Computed tomography images of the lumbar spine without contrast. Radiation optimization: All CT scans at this facility use at least one of these dose optimization techniques: automated exposure control; mA and/or kV adjustment per patient size (includes targeted exams where dose is matched to clinical indication); or iterative reconstruction. COMPARISON: No relevant prior studies available. FINDINGS: Vertebrae: Bulky anterior osteophyte formation in the lower thoracic spine and upper lumbar spine. Mild multilevel facet DJD. No compression fracture or bone lesions. Normal alignment. 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 Mild discogenic degenerative changes. Calcified disc osteophyte complex at L5-S1 causes bilateral neural foraminal stenosis there is no bony spinal canal stenosis. Kidneys and ureters: 5.6 cm cyst in the upper pole of the right kidney. Soft tissues: Unremarkable. IMPRESSION: 1. Degenerative changes as above with foraminal stenosis at L5-S1. 2. No fracture or malalignment. Electronically signed by: Nikhil Baxter On 08/03/2019 23:56:53 PM
[2019-08-04] MEDS ORDERED: METH1TAB40 PO (00:03)
== END 2019-08-04 00:53 | disposition home or self-care (01) ==
LOC: M ED 21:38
DX: S39.012A Strain of muscle, fascia and tendon of lower back, initial encounter (principal); X50.0XXA Overexertion from strenuous movement or load, initial encounter; Y92.014 Private driveway to single-family (private) house as the place of occurrence of the external cause; Y93.29 Activity, other involving ice and snow; M51.37 Other intervertebral disc degeneration, lumbosacral region; M48.07 Spinal stenosis, lumbosacral region; I82.409 Acute embolism and thrombosis of unspecified deep veins of unspecified lower extremity; E03.9 Hypothyroidism, unspecified; E66.9 Obesity, unspecified; Z79.890 Hormone replacement therapy; Z79.899 Other long term (current) drug therapy

== ENCOUNTER 2019-08-05 10:12 | Day surgery (SDC) | payer OTHER ==
[~2019-08-05] VITALS: Ht 177.8 cm; Wt 136.1 kg
[~2019-08-05 10:12] MED LIST changes: +METH1TAB40 PO; +NS 1,000 ML IV ONE
[2019-08-05] MEDS ORDERED: propofoL 500 MG/50 ML VIAL As Ordered ONE (11:43)
[2019-08-05] MEDS ORDERED: LIDOCAINE 2% INJ 100 MG/5 ML SDV (FOR ANES.) As Ordered ONE (11:43)
[2019-08-05] MEDS ORDERED: fentaNYL 100 MCG/2 ML INJECTION (J3010) As Ordered ONE (11:44)
[2019-08-05] MEDS ORDERED: propofoL 200 MG/20 ML VIAL As Ordered ONE (14:00)
--- NOTE | 2019-08-05 14:21 | ROOR ---
Patient Name: Jay Jay Stevens Procedure Date: 08/05/2019 1:25 PM Date of : 1960 Age: 59 Room: [facility] Gender: Male Note Status: Finalized Procedure: Upper GI endoscopy Indications: Epigastric abdominal pain, Abnormal CT of the GI tract Providers: Jameel Whitman MD Referring MD: Colby Bauer MD Requesting Provider: Medicines: Monitored Anesthesia Care Complications: No immediate complications. Procedure: Pre-Anesthesia Assessment: - Prior to the procedure, a History and Physical was performed, and patient medications and allergies were reviewed. The patient is competent. The risks and benefits of the procedure and the sedation options and risks were discussed with the patient. All questions were answered and informed consent was obtained. Patient identification and proposed procedure were verified by the physician, the nurse and the anesthesiologist in the endoscopy suite. Mental Status Examination: alert and oriented. Airway Examination: normal oropharyngeal airway and neck mobility. Respiratory Examination: clear to auscultation. CV Examination: normal. Prophylactic Antibiotics: The patient does not require prophylactic antibiotics. Prior Anticoagulants: The patient has taken Xarelto (rivaroxaban), last dose was 4 days prior to procedure. ASA Grade Assessment: III - A patient with severe systemic disease. After reviewing the risks and benefits, the patient was deemed in satisfactory condition to undergo the procedure. The anesthesia plan was to use monitored anesthesia care (MAC). Immediately prior to administration of medications, the patient was re-assessed for adequacy to receive sedatives. The heart rate, respiratory rate, oxygen saturations, blood pressure, adequacy of pulmonary ventilation, and response to care were monitored throughout the procedure. The physical status of the patient was re-assessed after the procedure. The Endoscope was introduced through the mouth, and advanced to the second part of duodenum. The upper GI endoscopy was accomplished without difficulty. The patient tolerated the procedure well. Findings: The examined esophagus was normal. Diffuse atrophic mucosa was found in the gastric antrum. This was biopsied with a cold forceps for histology. Estimated blood loss was minimal. The first portion of the duodenum and second portion of the duodenum were normal. Impression: - Normal esophagus. - Gastric mucosal atrophy. Biopsied. - Normal first portion of the duodenum and second portion of the duodenum. - decreased rugae, slight cobblestoning suspect atrophic gastritis, biopsied Recommendation: - Discharge patient to home (ambulatory). - Await pathology results. Jameel Whitman MD Jameel Whitman MD 08/05/2019 2:20:54 PM Electronically signed by Jameel Whitman MD Number of Addenda: 0 Note Initiated On: 08/05/2019 1:25 PM Estimated Blood Loss: Estimated blood loss was minimal.
--- NOTE | 2019-08-05 14:25 | ROOR ---
Patient Name: Jay Jay Stevens Procedure Date: 08/05/2019 1:26 PM Date of : 1960 Age: 59 Room: [facility] Gender: Male Note Status: Finalized Procedure: Colonoscopy Indications: Screening for colorectal malignant neoplasm Providers: Jameel Whitman MD Referring MD: Colby Bauer MD Requesting Provider: Medicines: Monitored Anesthesia Care Complications: No immediate complications. Procedure: Pre-Anesthesia Assessment: - Prior to the procedure, a History and Physical was performed, and patient medications and allergies were reviewed. The patient is competent. The risks and benefits of the procedure and the sedation options and risks were discussed with the patient. All questions were answered and informed consent was obtained. Patient identification and proposed procedure were verified by the physician, the nurse and the anesthesiologist in the endoscopy suite. Mental Status Examination: alert and oriented. Airway Examination: normal oropharyngeal airway and neck mobility. Respiratory Examination: clear to auscultation. CV Examination: normal. Prophylactic Antibiotics: The patient does not require prophylactic antibiotics. Prior Anticoagulants: The patient has taken Xarelto (rivaroxaban), last dose was 4 days prior to procedure. ASA Grade Assessment: III - A patient with severe systemic disease. After reviewing the risks and benefits, the patient was deemed in satisfactory condition to undergo the procedure. The anesthesia plan was to use monitored anesthesia care (MAC). Immediately prior to administration of medications, the patient was re-assessed for adequacy to receive sedatives. The heart rate, respiratory rate, oxygen saturations, blood pressure, adequacy of pulmonary ventilation, and response to care were monitored throughout the procedure. The physical status of the patient was re-assessed after the procedure. The Colonoscope was introduced through the anus and advanced to the cecum, identified by appendiceal orifice and ileocecal valve. The colonoscopy was technically difficult and complex due to poor bowel prep, a redundant colon and the patient's body habitus. Successful completion of the procedure was aided by applying abdominal pressure. The patient tolerated the procedure well. The quality of the bowel preparation was adequate to identify polyps 6 mm and larger in size. Findings: Hemorrhoids were found on perianal exam. A diminutive polyp was found in the transverse colon. The polyp was flat. The polyp was removed with a cold snare. Resection and retrieval were complete. Estimated blood loss was minimal. A 3 mm polyp was found in the recto-sigmoid colon. The polyp was sessile. The polyp was removed with a cold snare. Resection and retrieval were complete. For hemostasis, two hemostatic clips were successfully placed (MR conditional). There was no bleeding at the end of the procedure. No additional abnormalities were found on retroflexion. Impression: - Hemorrhoids found on perianal exam. - One diminutive polyp in the transverse colon, removed with a cold snare. Resected and retrieved. - One 3 mm polyp at the recto-sigmoid colon, removed with a cold snare. Resected and retrieved. Clips (MR conditional) were placed. Recommendation: - Discharge patient to home (ambulatory). - Await pathology results. - Repeat colonoscopy in 5 years for surveillance. - Resume Xarelto (rivaroxaban) at prior dose tomorrow. Refer to primary physician for further adjustment of therapy. Jameel Whitman MD Jameel Whitman MD 08/05/2019 2:24:54 PM Electronically signed by Jameel Whitman MD Number of Addenda: 0 Note Initiated On: 08/05/2019 1:26 PM Estimated Blood Loss: Estimated blood loss was minimal.
[2019-08-05 14:54] VITALS: BP 175/83
== END 2019-08-05 14:59 | disposition home or self-care (01) ==
LOC: M OPP 10:12
PROVIDERS: ATTEND Surgery
DX: Z12.11 Encounter for screening for malignant neoplasm of colon (principal); K64.9 Unspecified hemorrhoids; D12.3 Benign neoplasm of transverse colon; D12.7 Benign neoplasm of rectosigmoid junction; K31.89 Other diseases of stomach and duodenum; R10.13 Epigastric pain; R93.3 Abnormal findings on diagnostic imaging of other parts of digestive tract; G47.30 Sleep apnea, unspecified; Z79.899 Other long term (current) drug therapy
CPT/HCPCS: 43239; 45385; 88305; J3010

== ENCOUNTER 2022-09-10 11:08 | Emergency (ER) | payer OTHER ==
[~2022-09-10] VITALS: Ht 177.8 cm; Wt 134.1 kg
[~2022-09-10 11:08] MED LIST changes: +METH-1164 PO; -METH1TAB40 PO; -NS 1,000 ML IV ONE; +OMEP40CA4 PO; -OMEP40CA97 PO
[2022-09-10] MEDS ORDERED: LEVO150T7 (11:21)
[2022-09-10 13:38] LABS: BASO % 0.3 % (0.0-1.0); EOS # 0.2 10^3/uL (0.0-0.5); HEMATOCRIT 44.7 % (42.0-52.0); HEMOGLOBIN 14.4 g/dl (13.5-17.5); LYMPH # 1.1 10^3/uL (1.5-5.0); LYMPH % 9.5 % (24.0-44.0); MEAN CORPUSCULAR HEMOGLOBIN 30.3 pg (27.0-33.0); MEAN CORPUSCULAR HGB CONC 32.2 g/dl (32.0-36.5); MEAN CORPUSCULAR VOLUME 94.1 fl (80.0-96.0); MONO # 0.5 10^3/uL (0.0-0.8); MONO % 4.1 % (2.0-8.0); NEUTROPHILS # 9.6 10^3/uL (1.5-8.5); NEUTROPHILS % 83.8 % (36.0-66.0); PLATELET COUNT, AUTOMATED 165 10^3/uL (150-450); RED BLOOD COUNT 4.75 10^6/uL (4.30-6.10); WHITE BLOOD COUNT 11.5 10^3/uL (4.0-10.0)
[2022-09-10 14:07] LABS: LIPASE 28 U/L (12-53)
[2022-09-10 14:12] LABS: ALBUMIN 4.2 G/DL (3.2-5.2); ALKALINE PHOSPHATASE 77 U/L (46-116); ALT/SGPT 22 U/L (7.0-40); AST/SGOT 23 U/L (<34); BILIRUBIN,DIRECT 0.2 MG/DL (<0.4); BILIRUBIN,TOTAL 0.5 MG/DL (0.3-1.2); BLOOD UREA NITROGEN 17 MG/DL (9-23); CALCIUM LEVEL 8.6 MG/DL (8.3-10.6); CARBON DIOXIDE LEVEL 25 MMOL/L (20-31); CHLORIDE LEVEL 106 MMOL/L (98-107); CREATININE FOR GFR 0.85 MG/DL (0.70-1.30); GLOMERULAR FILTRATION RATE > 60.0 (>49); GLUCOSE, FASTING 117 MG/DL (74-106); SODIUM LEVEL 140 MMOL/L (136-145); TOTAL PROTEIN 8.1 G/DL (5.7-8.2)
[2022-09-10] MEDS ORDERED: MORPHINE 2 MG/ML 1ML VIAL IV ONE (16:30)
[2022-09-10] MEDS ORDERED: ONDANSETRON 4MG 2ML VIAL IV ONE (16:30)
[2022-09-10] MEDS ORDERED: NS 1,000 ML IV ONE (16:30)
[2022-09-10 16:50] VITALS: BP 134/75
[2022-09-10 17:58] LABS: RSV AMPLIFICATION NEGATIVE (NEGATIVE)
[2022-09-10] MEDS ORDERED: ONDA4TAB6 PO (19:40)
== END 2022-09-10 20:12 | disposition home or self-care (01) ==
LOC: M ED 11:08
DX: R10.9 Unspecified abdominal pain (principal); R19.7 Diarrhea, unspecified; R00.1 Bradycardia, unspecified; M54.50 Low back pain, unspecified; G47.33 Obstructive sleep apnea (adult) (pediatric); E03.9 Hypothyroidism, unspecified; Z86.718 Personal history of other venous thrombosis and embolism; Z79.83 Long term (current) use of bisphosphonates; Z79.899 Other long term (current) drug therapy
CPT/HCPCS: 36415; 80048; 80076; 83690; 85025; 87631; 93005; 96374; 96375; 99284; J2270; J2405

== ENCOUNTER → 2023-09-10 | Outpatient (CLI) | payer OTHER ==
[~2023-09-10] MED LIST changes: +LEVO150T7; +ONDA4TAB6 PO
== END ==
LOC: M RAD 11:28
PROVIDERS: ATTEND Family Medicine
DX: N28.1 Cyst of kidney, acquired (principal)

== ENCOUNTER 2024-09-24 09:48 | Day surgery (SDC) | payer OTHER ==
[~2024-09-24] VITALS: Ht 177.8 cm; Wt 145.1 kg
[~2024-09-24 09:48] MED LIST changes: +LIDOCAINE 2% 100MG/5ML SDV (FOR ANES.) As Ordered ONE; +OMEP40CA5 PO; +ONDA-282 PO; -ONDA4TAB6 PO; +PEPC1TAB5 PO; +SYNT175T2 PO; +propofoL 200 MG/20 ML VIAL As Ordered ONE
[2024-09-24] MEDS ORDERED: fentaNYL 100 MCG/2 ML INJECTION As Ordered ONE (11:12)
[2024-09-24 11:32] VITALS: TEMP 98
[2024-09-24 11:53] VITALS: BP 113/64; O2SAT 94
== END 2024-09-24 11:55 | disposition home or self-care (01) ==
LOC: M OPP 09:48
PROVIDERS: ATTEND Surgery
DX: K21.00 Gastro-esophageal reflux disease with esophagitis, without bleeding (principal); K31.89 Other diseases of stomach and duodenum; K30 Functional dyspepsia; R13.10 Dysphagia, unspecified; Z86.0100 Personal history of colon polyps, unspecified; G47.30 Sleep apnea, unspecified; Z79.01 Long term (current) use of anticoagulants; Z79.899 Other long term (current) drug therapy; Z86.718 Personal history of other venous thrombosis and embolism
CPT/HCPCS: 43239; 45330; 88305; J3010

== ENCOUNTER 2024-09-27 10:09 | Emergency (ER) | payer OTHER ==
[~2024-09-27] VITALS: Ht 177.8 cm; Wt 145.2 kg
[~2024-09-27 10:09] MED LIST changes: -LIDOCAINE 2% 100MG/5ML SDV (FOR ANES.) As Ordered ONE; -propofoL 200 MG/20 ML VIAL As Ordered ONE
[2024-09-27] MEDS ORDERED: ONDANSETRON 4MG 2ML VIAL IV ONE (11:55)
[2024-09-27] MEDS ORDERED: PANTOPRAZOLE 40MG VIAL IV ONE (11:55)
[2024-09-27] MEDS: MAALOX 30 ML SUSP *UDC PO ONE (11:55)
[2024-09-27] MEDS: SUCRALFATE SUSP 1GM/10ML UD PO ONE (12:29)
[2024-09-27 13:22] LABS: BASO % 0.7 % (0.0-1.0); EOS # 0.2 10^3/uL (0.0-0.5); EOS % 3.1 % (0.0-3.0); HEMATOCRIT 43.2 % (42.0-52.0); LYMPH # 1.7 10^3/uL (1.5-5.0); MEAN CORPUSCULAR HEMOGLOBIN 30.4 pg (27.0-33.0); MEAN CORPUSCULAR HGB CONC 32.4 g/dl (32.0-36.5); MEAN CORPUSCULAR VOLUME 93.7 fl (80.0-96.0); MONO # 0.4 10^3/uL (0.0-0.8); MONO % 7.7 % (2.0-8.0); NEUTROPHILS # 3.1 10^3/uL (1.5-8.5); NEUTROPHILS % 56.3 % (36.0-66.0); PLATELET COUNT, AUTOMATED 145 10^3/uL (150-450); RED BLOOD COUNT 4.61 10^6/uL (4.30-6.10); WHITE BLOOD COUNT 5.4 10^3/uL (4.0-10.0)
[2024-09-27 14:00] LABS: ALBUMIN 4.2 G/DL (3.2-5.2); ALKALINE PHOSPHATASE 70 U/L (40-129); ALT/SGPT 31 U/L (7.0-40); AST/SGOT 49 U/L (<34); BILIRUBIN,DIRECT < 0.1 MG/DL (<0.4); BILIRUBIN,TOTAL 0.4 MG/DL (0.3-1.2); BLOOD UREA NITROGEN 18 MG/DL (9-23); CALCIUM LEVEL 9.3 MG/DL (8.3-10.6); CARBON DIOXIDE LEVEL 24 MMOL/L (20-31); CHLORIDE LEVEL 106 MMOL/L (98-107); CREATININE FOR GFR 1.17 MG/DL (0.70-1.30); GLOMERULAR FILTRATION RATE > 60.0 (>49); GLUCOSE, FASTING 91 MG/DL (74-106); LIPASE 46 U/L (12-53); POTASSIUM SERUM 5.2 MMOL/L (3.5-5.1); SODIUM LEVEL 141 MMOL/L (136-145); TOTAL PROTEIN 8.6 G/DL (5.7-8.2)
[2024-09-27] MEDS: PANTOPRAZOLE 40MG TAB (PROTONIX) PO ONE (14:12)
[2024-09-27] MEDS: ONDANSETRON 4MG ORAL DISINTEGRATING TAB PO ONE (14:12)
[2024-09-27] MEDS ORDERED: PANT40TA29 PO (14:56)
[2024-09-27] MEDS ORDERED: SUCR1SS PO (14:56)
[2024-09-27] MEDS ORDERED: ONDA-282 PO (14:56)
[2024-09-27 15:21] VITALS: BP 146/78; TEMP 97.3; O2SAT 100
[2024-09-28] MEDS ORDERED: PANT-23 PO (19:58)
[2024-09-28] MEDS ORDERED: SUCR1ORA2 PO (19:58)
== END 2024-09-27 15:24 | disposition home or self-care (01) ==
LOC: M ED 10:09
DX: K21.00 Gastro-esophageal reflux disease with esophagitis, without bleeding (principal); R00.1 Bradycardia, unspecified; E03.9 Hypothyroidism, unspecified; Z86.718 Personal history of other venous thrombosis and embolism; Z79.899 Other long term (current) drug therapy

== ENCOUNTER 2024-09-27 20:55 | Emergency (ER) | payer OTHER ==
[~2024-09-27] VITALS: Ht 177.8 cm; Wt 140.0 kg
[~2024-09-27 20:55] MED LIST changes: +PANT40TA29 PO; +SUCR1SS PO
[2024-09-27 20:57] VITALS: BP 135/93; TEMP 96.7; O2SAT 99
[2024-09-28] MEDS ORDERED: PANT-23 PO (19:58)
[2024-09-28] MEDS ORDERED: SUCR1ORA2 PO (19:58)
== END 2024-09-27 22:33 | disposition left against medical advice (07) ==
LOC: M ED 20:55
DX: Z53.21 Procedure and treatment not carried out due to patient leaving prior to being seen by health care provider (principal)

== ENCOUNTER 2024-09-28 09:56 | Inpatient (IN) | payer OTHER ==
[~2024-09-28] VITALS: Ht 177.8 cm; Wt 164.4 kg
[2024-09-28] MEDS: NS (Normal Saline) 0.9% 1,000 ML IV ONE (14:38)
[2024-09-28 14:47] LABS: BASO # 0.1 10^3/uL (0.0-0.2); BASO % 0.8 % (0.0-1.0); EOS # 0.2 10^3/uL (0.0-0.5); EOS % 2.7 % (0.0-3.0); HEMATOCRIT 44.9 % (42.0-52.0); HEMOGLOBIN 14.5 g/dl (13.5-17.5); LYMPH # 1.6 10^3/uL (1.5-5.0); LYMPH % 25.1 % (24.0-44.0); MEAN CORPUSCULAR HEMOGLOBIN 29.8 pg (27.0-33.0); MEAN CORPUSCULAR HGB CONC 32.3 g/dl (32.0-36.5); MEAN CORPUSCULAR VOLUME 92.2 fl (80.0-96.0); MONO # 0.5 10^3/uL (0.0-0.8); MONO % 7.3 % (2.0-8.0); NEUTROPHILS % 63.9 % (36.0-66.0); PLATELET COUNT, AUTOMATED 159 10^3/uL (150-450); RED BLOOD COUNT 4.87 10^6/uL (4.30-6.10); WHITE BLOOD COUNT 6.3 10^3/uL (4.0-10.0)
[2024-09-28 17:26] LABS: BLOOD UREA NITROGEN 17 MG/DL (9-23); CALCIUM LEVEL 8.7 MG/DL (8.3-10.6); CARBON DIOXIDE LEVEL 24 MMOL/L (20-31); CHLORIDE LEVEL 107 MMOL/L (98-107); CREATININE FOR GFR 1.17 MG/DL (0.70-1.30); GLOMERULAR FILTRATION RATE > 60.0 (>49); GLUCOSE, FASTING 74 MG/DL (74-106); POTASSIUM SERUM 4.2 MMOL/L (3.5-5.1); SODIUM LEVEL 143 MMOL/L (136-145)
[2024-09-28] MEDS: LR 1,000 ML IV ONE (17:40)
[2024-09-28 18:51] LABS: FREE T4 1.08 NG/DL (0.89-1.76); THYROID STIMULATING HORMONE 3.292 uIU/ML (0.55-4.78)
[2024-09-28] MEDS ORDERED: ONDANSETRON 4MG 2ML VIAL IV PRN (19:30)
[2024-09-28] MEDS: D5W/0.45% SODIUM CHLORIDE 1,000 ML IV SCH (19:41)
[2024-09-28] MEDS ORDERED: PANT-23 PO (19:58)
[2024-09-28] MEDS ORDERED: SUCR1ORA2 PO (19:58)
[2024-09-28] MEDS ORDERED: HOME MED LIST COMPLETE! XX SCH (20:00)
[2024-09-28] MEDS: SUCRALFATE SUSP 1GM/10ML UD PO SCH (21:37)
[2024-09-28] MEDS: PANTOPRAZOLE 40MG VIAL IV SCH (21:37)
[2024-09-29] MEDS ORDERED: RIVAROXABAN 10MG TAB (XARELTO) PO SCH (18:00)
[2024-09-29] MEDS: RIVAROXABAN 20MG TAB (XARELTO) PO SCH (18:26)
[2024-09-29 22:15] VITALS: BP 162/83; TEMP 98; O2SAT 100
[2024-09-30] VITALS: BP 134/73; TEMP 97.6; O2SAT 97
[2024-09-30 04:02] VITALS: BP 112/66; TEMP 97.6; O2SAT 96
[2024-09-30 07:51] VITALS: BP 123/72; TEMP 97.2; O2SAT 100
[2024-09-30 11:43] VITALS: BP 131/60; TEMP 97.6; O2SAT 100
[2024-10-01 15:30] LABS: ANA SCREEN, IFA NEGATIVE (NEGATIVE)
[2024-10-01 17:15] LABS: ANTI SCLERODERMA ANTIBODIES <1.0 NEG AI (<1.0 NEG)
== END 2024-09-30 15:08 | disposition home or self-care (01) | DRG 920 ==
LOC: M ED 09:56 → M ED INP 17:12 → M PCU 09-29 22:07
PROVIDERS: ADMIT General Practice; ATTEND Student in an Organized Health Care Education/Training Program
DX: K91.870 Postprocedural hematoma of a digestive system organ or structure following a digestive system procedure (principal); Z68.42 Body mass index [BMI] 45.0-49.9, adult; R13.10 Dysphagia, unspecified; E66.01 Morbid (severe) obesity due to excess calories; G47.33 Obstructive sleep apnea (adult) (pediatric); E03.9 Hypothyroidism, unspecified; K20.90 Esophagitis, unspecified without bleeding; K29.70 Gastritis, unspecified, without bleeding; Z79.01 Long term (current) use of anticoagulants; Z86.718 Personal history of other venous thrombosis and embolism; K64.8 Other hemorrhoids; K76.0 Fatty (change of) liver, not elsewhere classified; Z79.899 Other long term (current) drug therapy; Z79.890 Hormone replacement therapy

== ENCOUNTER → 2025-01-12 | Outpatient (CLI) | payer OTHER ==
[~2025-01-12] MED LIST changes: +E-Z-GAS II EFFERVESCENT PACKET (SODIUM BICARB./CITRIC ACID/SIMETHICONE) As Ordered ONE; +E-Z-HD 98% w/w 340 GM SUSP BTL As Ordered ONE; +E-Z-PAQUE 96% w/w SUSP 176 GM BTL As Ordered ONE; +PANT-23 PO; +SUCR1ORA20 PO
== END ==
LOC: M RAD 11-30 08:23
PROVIDERS: ATTEND Physician Assistant
DX: R13.10 Dysphagia, unspecified (principal)

== ENCOUNTER → 2025-04-09 | Outpatient (CLI) | payer OTHER ==
[~2025-04-09] MED LIST changes: -E-Z-GAS II EFFERVESCENT PACKET (SODIUM BICARB./CITRIC ACID/SIMETHICONE) As Ordered ONE; -E-Z-HD 98% w/w 340 GM SUSP BTL As Ordered ONE; -E-Z-PAQUE 96% w/w SUSP 176 GM BTL As Ordered ONE
== END ==
LOC: M SLEEP 20:00
PROVIDERS: ATTEND Internal Medicine Critical Care Medicine
DX: G47.33 Obstructive sleep apnea (adult) (pediatric) (principal)